=== PATIENT | female | born 1980 | race American Indian/Alaskan Native ===

== ENCOUNTER 2018-01-04 09:10 | Outpatient (CLI) | payer BC ==
--- NOTE | 2018-01-04 10:54 | Ultrasound Report ---
Bilateral mammogram and right breast ultrasound: The patient presents with a palpable area in the right breast. A marker is placed over the area of concern in the upper-outer breast. Routine views were obtained in addition to a 90degree lateral projection and a spot compression CC view. The patient has a heterogeneously dense fibroglandular pattern which is symmetrically and diffusely distributed bilaterally. No asymmetries, architectural distortion, or calcifications noted. Specifically no abnormality identified in the area of the marker. Targeted ultrasound performed over the area of concern in the 11:00 position showed normal fibroglandular appearing breast tissue. CAD used. Impression: Normal mammogram and targeted right breast ultrasound. Recommendation: Clinical followup. Any additional evaluation at this time should be based on your concern. Age-appropriate followup mammogram. BI-RADS CATEGORY: 1 = Negative ACR BI-RADS MAMMOGRAPHIC CODES: 0 = Needs additional imaging evaluation; 1 = Negative; 2 = Benign; 3 = Probably benign; 4 = Suspicious; 5 = Malignant; 6 = Known biopsy-proven malignancy COMMENT: 1. Dense breast tissue, i.e., adenosis, fibrocystic changes, etc., may obscure an underlying neoplasm. 2. Approximately 10% of cancers are not detected with mammography. 3. A negative mammography report should not delay biopsy if a clinically suspicious mass is present.
== END 2018-01-04 09:11 | disposition home or self-care (01) ==
LOC: MAMMO 09:10
PROVIDERS: ATTEND Obstetrics & Gynecology
DX: N63.11 Unspecified lump in the right breast, upper outer quadrant (principal)
CPT/HCPCS: 77066

== ENCOUNTER 2019-09-25 10:22 | Outpatient (CLI) | payer BC ==
--- NOTE | 2019-09-25 12:03 | Mammography Report ---
BILATERAL DIGITAL SCREENING MAMMOGRAM WITH CAD INDICATION: Routine screening mammography. Patient reports a right palpable finding on the screening mammogram questionnaire. She states this was evaluated on prior exam from 2018 and was found to be be nign. It is unchanged.. TECHNIQUE: Digital bilateral 2D mammography was obtained in the craniocaudal and mediolateral obliq ue projections. This examination was interpreted with the benefit of Computer-Aided Detection analysi s. COMPARISON: 01/04/2018. FINDINGS: Breast Density: The breasts are heterogeneously dense, which may obscure small masses. There is a new asymmetry in the medial posterior right breast. This is seen on the cc view only. No s uspicious findings in the left breast. IMPRESSION: New right medial posterior breast asymmetry for which additional mammographic views (spot CC, rolled CCs, full ML) are recommended for further evaluation with possible subsequent targeted ultrasound. BI-RADS Category 0: Incomplete. Needs additional imaging evaluation and/or prior mammograms for emile rison. A "normal" or negative report should not discourage follow up or biopsy of a clinically significant f inding. A written summary of these findings will be mailed to the patient. The patient will be entered into a mammography reporting system which will generate a reminder letter for the patient's next appointmen t at the appropriate interval. The [employer] recommends yearly mammograms starting at age 40 and continuing as l olga as a woman is in good health. Breast MRI is recommended for women with an approximate 20-25% or greater lifetime risk of breast cancer, including women with a strong family history of breast or ova danuta cancer or who have been treated for Hodgkin's disease. Signer Name: Marco Mayer MD Signed: 09/25/2019 11:58 AM Workstation Name: [id number]
== END 2019-09-25 10:23 | disposition home or self-care (01) ==
LOC: MAMMO 10:22
PROVIDERS: ATTEND Obstetrics & Gynecology
DX: Z12.31 Encounter for screening mammogram for malignant neoplasm of breast (principal)
CPT/HCPCS: 77067

== ENCOUNTER 2020-10-14 13:11 | Outpatient (CLI) | payer BC ==
--- NOTE | 2020-10-14 14:39 | Mammography Report ---
DIGITAL SCREENING MAMMOGRAM WITH CAD, 10/14/2020 CLINICAL INFORMATION / INDICATION: Routine screening mammography. TECHNIQUE: Digital bilateral 2D mammography was obtained in the craniocaudal and mediolateral obliqu e projections. This examination was interpreted with the benefit of Computer-Aided Detection analysis . COMPARISON: 09/25/2019, 01/04/2018. FINDINGS: Breast Density: The breasts are heterogeneously dense, which may obscure small masses. No dominant mass, suspicious calcifications, or architectural distortion in either breast. No interval change. IMPRESSION: No mammographic evidence of malignancy. Follow up recommendation: Routine yearly BI-RADS Category 1: Negative. A "normal" or negative report should not discourage follow up or biopsy of a clinically significant f inding. A written summary of these findings will be mailed to the patient. The patient will be entered into a mammography reporting system which will generate a reminder letter for the patient's next appointmen t at the appropriate interval. The [employer] recommends yearly mammograms starting at age 40 and continuing as l olga as a woman is in good health. Breast MRI is recommended for women with an approximate 20-25% or greater lifetime risk of breast cancer, including women with a strong family history of breast or ova danuta cancer or who have been treated for Hodgkin's disease. Signer Name: Anisha Russell MD Signed: 10/14/2020 2:34 PM Workstation Name: [id number]
== END 2020-10-14 13:12 | disposition home or self-care (01) ==
LOC: MAMMO 13:11
PROVIDERS: ATTEND Obstetrics & Gynecology
DX: Z12.31 Encounter for screening mammogram for malignant neoplasm of breast (principal)
CPT/HCPCS: 77067